=== PATIENT | male | born 1950 | race Caucasian/White ===

== ENCOUNTER 2020-06-08 12:16 | Inpatient (IN) | payer MEDICARE, MEDICAID ==
[~2020-06-08] VITALS: Ht 182.9 cm; Wt 90.9 kg
[~2020-06-08 12:16] MED LIST: ASPI81TA52 PO; ATOR80TA PO; BENA10TA75 PO; FURO20TA4 PO; METO25TA6 PO; NICO-731 TOP; NITR0.4T51 SL
--- NOTE | 2020-06-08 13:18 | NUR ---
Tanya STRONG updated. Patient/family removed madsen bag prior to ER visit. The madsen is open to air and is sitting inside a urinal. A few drops of bloody discharge noted in urinal, but unable to obtain sample due to lack of volume. Concerned that madsen is clotted.
[2020-06-08 13:37] LABS: BASOPHILS # (AUTO) 0.1 X10'3 (0-0.2); BASOPHILS % (AUTO) 0.8 % (0-1); EOSINOPHILS # (AUTO) 0.1 X10'3 (0-0.9); EOSINOPHILS % (AUTO) 0.7 % (0-6); HEMATOCRIT 40.3 % (42.0-52.0); HEMOGLOBIN 13.8 g/dl (14.0-17.9); LYMPHOCYTES # (AUTO) 1.8 X10'3 (1.1-4.8); LYMPHOCYTES % (AUTO) 15.6 % (21-51); MEAN CORPUSCULAR HGB CONC 34.3 g/dL (33.0-36.5); MEAN CORPUSCULAR VOLUME 96.3 FL (78-98); MEAN PLATELET VOLUME 9.1 FL (7.4-10.4); MONOCYTES # (AUTO) 0.9 X10'3 (0-0.9); MONOCYTES % (AUTO) 7.7 % (2-12); NEUTROPHILS # (AUTO) 8.5 X10'3 (1.8-7.7); NEUTROPHILS % (AUTO) 75.2 % (42-75); PLATELET COUNT 165 X10'3 (140-440); RED BLOOD COUNT 4.19 X10'6 (4.70-6.10); RED CELL DISTRIBUTION WIDTH 13.7 % (11.5-14.5); WHITE BLOOD COUNT 11.3 X10'3 (4.5-11.0)
[2020-06-08 13:47] LABS: ALANINE AMINOTRANSFERASE 26 U/L (12-78); ALBUMIN 3.9 G/DL (3.4-5.0); ALBUMIN/GLOBULIN RATIO 1.1 (1.1-1.5); ALKALINE PHOSPHATASE 63 IU/L (46-116); ANION GAP 11 (8-16); ASPARTATE AMINO TRANSFERASE 58 U/L (10-37); BILIRUBIN,TOTAL 0.9 MG/DL (0.1-1.0); BLOOD UREA NITROGEN 20 MG/DL (7-18); BUN/CREATININE RATIO 13.7 (5.4-32.0); CALCIUM 9.3 MG/DL (8.5-10.1); CHLORIDE 103 MMOL/L (99-107); CREATININE 1.46 MG/DL (0.60-1.10); GLUCOSE 106 MG/DL (70-104); POTASSIUM 4.3 MMOL/L (3.5-5.1); SODIUM 138 MMOL/L (135-145); TOTAL CARBON DIOXIDE 23.6 MMOL/L (24-32); TOTAL PROTEIN 7.3 G/DL (6.4-8.2); eGFR 48 ML/MIN
[2020-06-08 14:04] LABS: CLARITY,URINE BLOODY (Clear); COLOR,URINE RED (Yellow); UA COLLECTION TYPE FOLEY CATH
[2020-06-08 14:25] LABS: SQUAMOUS EPITHELIAL CELL,UR FEW /LPF (FEW); WBC CLUMPS,URINE FEW /HPF (NEGATIVE)
[2020-06-08 14:26] LABS: BACTERIA,URINE 1+ /HPF (Neg); HYALINE CASTS 0-3 /LPF (NEGATIVE); RBC,URINE TNTC /HPF (0-2)
[2020-06-08] MEDS ORDERED: FLO0.4C PO ×2 (14:34→18:05)
[2020-06-08] MEDS ORDERED: NAPR-56 PO (14:34)
[2020-06-08] MEDS ORDERED: HYDR-3965 PO (14:36)
--- NOTE | 2020-06-08 14:45 | NUR ---
Turner catheter flushed as ordered. Small clots removed with flushing. Bright red colored urine still returned after flushes.
[2020-06-08] MEDS ORDERED: normal saline 1000ML IV soln IVB ONE ×3 (14:50→17:45)
[2020-06-08 16:54] LABS: BASOPHILS # (AUTO) 0.1 X10'3 (0-0.2); EOSINOPHILS # (AUTO) 0.2 X10'3 (0-0.9); EOSINOPHILS % (AUTO) 1.6 % (0-6); HEMATOCRIT 38.1 % (42.0-52.0); HEMOGLOBIN 12.9 g/dl (14.0-17.9); LYMPHOCYTES # (AUTO) 2.5 X10'3 (1.1-4.8); LYMPHOCYTES % (AUTO) 27.5 % (21-51); MEAN CORPUSCULAR HEMOGLOBIN 32.8 PG (27.0-31.0); MEAN CORPUSCULAR VOLUME 96.6 FL (78-98); MEAN PLATELET VOLUME 9.1 FL (7.4-10.4); MONOCYTES # (AUTO) 0.8 X10'3 (0-0.9); MONOCYTES % (AUTO) 8.2 % (2-12); NEUTROPHILS # (AUTO) 5.7 X10'3 (1.8-7.7); NEUTROPHILS % (AUTO) 61.7 % (42-75); PLATELET COUNT 161 X10'3 (140-440); RED BLOOD COUNT 3.94 X10'6 (4.70-6.10); RED CELL DISTRIBUTION WIDTH 13.7 % (11.5-14.5); WHITE BLOOD COUNT 9.2 X10'3 (4.5-11.0)
[2020-06-08] MEDS ORDERED: morphine 4 MG/ML inj SYRINge IV ONE (17:45)
[2020-06-08] MEDS ORDERED: ondansetron/PF 4mg/2ml inj IV ONE (17:45)
[2020-06-08] MEDS ORDERED: FURO-150 PO (18:05)
[2020-06-08] MEDS ORDERED: BENA10TA75 PO (18:05)
[2020-06-08] MEDS ORDERED: METO25TA6 PO (18:05)
--- NOTE | 2020-06-08 18:14 | NUR ---
DR. HUITRON AT BEDSIDE. PATIENT HAVING PAIN AND FEELS LIKE HE HAS TO PEE. LARGE CLOTS NOTED IN CATHETER. ORDERS TO CHANGE ARREDONDO FOR CONTINUOUS BLADDER IRRIGATION.
[2020-06-08] MEDS ORDERED: LIDOcaine 2% 10ml TOPICAL JELLY (Urojet) MM ONE (18:25)
[2020-06-08] MEDS ORDERED: [UNRECOGNIZED DRUG - CODE] PO (18:44)
[2020-06-08] MEDS ORDERED: ALBU8.5H8 IH (18:44)
[2020-06-08] MEDS ORDERED: NITR0.4T51 SL (18:44)
[2020-06-08] MEDS ORDERED: LORazepam 2 mg/ml vial IV ONE (18:45)
[2020-06-08] MEDS ORDERED: HYDROcodone/acetaminophen 10/325mg tab PO PRN (18:45)
[2020-06-08] MEDS ORDERED: potassium Cl 20 mEq SR tablet PO PRN ×2 (18:45)
[2020-06-08] MEDS ORDERED: magnesium Cl slow-release 64mg tablet PO PRN (18:45)
[2020-06-08] MEDS ORDERED: morphine 2 MG/ML inj. syringe IV PRN ×2 (18:45)
[2020-06-08] MEDS ORDERED: HYDROcodone/acetaminophen 5mg/325mg tablet PO PRN (18:45)
[2020-06-08] MEDS ORDERED: docusate sod 100mg capsule PO PRN (18:45)
[2020-06-08] MEDS ORDERED: magnesium 2GM in 50ml NS 50 ML IV PRN (18:45)
[2020-06-08] MEDS ORDERED: magnesium 4gm in 100ml NS 100 ML IV PRN (18:45)
[2020-06-08] MEDS ORDERED: acetaminophen 325mg tablet PO PRN ×2 (18:45)
[2020-06-08] MEDS ORDERED: potassium Cl 40MEQ/1/2NS 520ml 520 ML IV PRN ×2 (18:45)
[2020-06-08] MEDS ORDERED: ondansetron/PF 4mg/2ml inj IV PRN (18:45)
[2020-06-08] MEDS ORDERED: albuterol 2.5 MG/3 ML nebule NEB PRN (18:55)
[2020-06-08] MEDS: normal saline 1000ml 1,000 ML IV SCH (19:32)
--- NOTE | 2020-06-08 19:40 | NUR ---
[address] Turner placed with the help of a urojet and Ativan 1 mg IV. Continuous irrigation flowing freely w/ pink tone urine. Pt tolerated procedure well and is resting comfortably. Pt states he has dentures upper and lower in his jacket pocket and has in his patient belonging bag clothing, shoes, phone and front window cashier.
--- NOTE | 2020-06-08 19:55 | NUR ---
Received report from Michelle BELTRAN. Patient came up to the floor via gurney and was able to transfer into bed with min assist. Bed placed in locked and low position. Call light placed within reach.
[2020-06-08 20:00] VITALS: BP 120/61
[2020-06-08] MEDS ORDERED: tamsulosin 0.4mg capsule PO SCH (21:00)
[2020-06-08] MEDS ORDERED: temazepam 15mg capsule PO PRN (21:00)
[2020-06-08] MEDS: tamsulosin 0.4mg capsule PO SCH (21:02)
[2020-06-08] MEDS: atorvastatin 20mg tablet PO SCH (21:02)
[2020-06-08] MEDS: metoprolol tartrate 12.5mg (1/2 tablet) PO SCH (21:03)
[2020-06-08] MEDS: K and/or MAG REPLACEMENT MC SCH (21:06)
[2020-06-08] MEDS: ciprofloxacin lact 400MG/200ML 200 ML IV SCH (21:39)
[2020-06-08 22:00] VITALS: BP 117/69
[2020-06-09] VITALS (18 sets, daily range): BP systolic 91–138; BP diastolic 50–70
[2020-06-09] MEDS: normal saline 1000ml 1,000 ML IV SCH ×3 (00:03→20:00)
[2020-06-09] MEDS ORDERED: morphine 4 MG/ML inj SYRINge IM ONE (00:45)
[2020-06-09] MEDS ORDERED: morphine 4 MG/ML inj SYRINge IV ONE (00:50)
[2020-06-09] MEDS ORDERED: morphine 2 MG/ML inj. syringe IV PRN ×2 (01:35→16:30)
--- NOTE | 2020-06-09 05:52 | NUR ---
Patient on continuos bladder irrigation. 11,250mls was instilled and 11,830mls was removed. Urine color is jennifer colored at times but patient will spasm up and try to urinate then urine will turn gordon red blood colored. Pain medication given to help with spasms.
--- NOTE | 2020-06-09 06:30 | NUR ---
Problems reprioritized. Patient report given, questions answered & plan of care reviewed with Kyle BELTRAN.
--- NOTE | 2020-06-09 06:40 | NUR ---
Patient in room PCU 3023. I have received report from Shandra BELTRAN and had the opportunity to ask questions and assume patient care.
[2020-06-09 06:47] LABS: BASOPHILS % (AUTO) 0.5 % (0-1); EOSINOPHILS # (AUTO) 0.2 X10'3 (0-0.9); EOSINOPHILS % (AUTO) 2.5 % (0-6); HEMATOCRIT 33.5 % (42.0-52.0); HEMOGLOBIN 11.8 g/dl (14.0-17.9); LYMPHOCYTES # (AUTO) 2.9 X10'3 (1.1-4.8); LYMPHOCYTES % (AUTO) 35.5 % (21-51); MEAN CORPUSCULAR HEMOGLOBIN 33.7 PG (27.0-31.0); MEAN CORPUSCULAR HGB CONC 35.4 g/dL (33.0-36.5); MEAN CORPUSCULAR VOLUME 95.2 FL (78-98); MEAN PLATELET VOLUME 9.2 FL (7.4-10.4); MONOCYTES # (AUTO) 0.7 X10'3 (0-0.9); MONOCYTES % (AUTO) 8.5 % (2-12); NEUTROPHILS # (AUTO) 4.3 X10'3 (1.8-7.7); PLATELET COUNT 149 X10'3 (140-440); RED BLOOD COUNT 3.52 X10'6 (4.70-6.10); RED CELL DISTRIBUTION WIDTH 13.6 % (11.5-14.5); WHITE BLOOD COUNT 8.2 X10'3 (4.5-11.0)
[2020-06-09 07:41] LABS: ALANINE AMINOTRANSFERASE 23 U/L (12-78); ALBUMIN 3.2 G/DL (3.4-5.0); ALBUMIN/GLOBULIN RATIO 1.1 (1.1-1.5); ALKALINE PHOSPHATASE 55 IU/L (46-116); ANION GAP 11 (8-16); ASPARTATE AMINO TRANSFERASE 53 U/L (10-37); BILIRUBIN,TOTAL 0.7 MG/DL (0.1-1.0); BLOOD UREA NITROGEN 19 MG/DL (7-18); BUN/CREATININE RATIO 15.2 (5.4-32.0); CALCIUM 8.3 MG/DL (8.5-10.1); CHLORIDE 106 MMOL/L (99-107); CREATININE 1.25 MG/DL (0.60-1.10); GLUCOSE 119 MG/DL (70-104); POTASSIUM 4.3 MMOL/L (3.5-5.1); SODIUM 140 MMOL/L (135-145); TOTAL CARBON DIOXIDE 22.7 MMOL/L (24-32); TOTAL PROTEIN 6.2 G/DL (6.4-8.2); eGFR 57 ML/MIN
--- NOTE | 2020-06-09 07:48 | NUR ---
PAGER ID: [phone] MESSAGE: [id number] ELIZABETH CAN WE HAVE AN ORDER FOR SOMETHING FOR BLADDER SPASMS. DIPAK [facility] 2018
[2020-06-09] MEDS: K and/or MAG REPLACEMENT MC SCH ×2 (08:00→20:00)
[2020-06-09] MEDS: lisinopril 10 MG tablet PO SCH (08:00)
[2020-06-09] MEDS: metoprolol tartrate 12.5mg (1/2 tablet) PO SCH ×2 (08:00→20:42)
[2020-06-09] MEDS ORDERED: opium/belladonna alkaloids No. 15A 30mg rectal suppository RC PRN (08:05)
[2020-06-09] MEDS: ciprofloxacin lact 400MG/200ML 200 ML IV SCH ×2 (08:14→20:42)
[2020-06-09] MEDS ORDERED: pneumococcal 23-VAL P-sac vacc 25 mcg/0.5ml vial IMVAC ONE (10:00)
--- NOTE | 2020-06-09 10:00 | NUR ---
Dr. Preciado at [facility] to see patient, possible surgery this evening or in the morning, needs cardiology clearance.
--- NOTE | 2020-06-09 13:15 | NUR ---
At bedside with patient, with frequent changes of CBI. Urine dark red with multiple clots. Patient comfortable at the moment, but complains of pain frequently from clots in urine that he is unable to pass, without manual irrigation. Possible surgery this afternoon. Bed locked in lowest position, call light within reach, patient instructed to call for assistance, pt verbalized understanding.
--- NOTE | 2020-06-09 13:26 | NUR ---
Al has CBI, [id number]
--- NOTE | 2020-06-09 14:30 | NUR ---
Patient picked up for surgery by OR
[2020-06-09] MEDS ORDERED: neomy sulf/polymyxin B sulf. GU irrigation 1ml amp IR ONE (14:41)
[2020-06-09] MEDS ORDERED: LIDOcaine 2% 10ml TOPICAL JELLY (Urojet) ONE (14:41)
[2020-06-09] MEDS ORDERED: midazolam 2 mg/2 ml injection ONE (15:00)
[2020-06-09] MEDS ORDERED: fentaNYL/PF 50MCG/1 ML 2ML syringe ONE (15:00)
[2020-06-09] MEDS ORDERED: propofol inj 20 ML IV ONE (15:00)
[2020-06-09] MEDS ORDERED: NORepinephrine 8 MG in NS 250 ML BAG (32 mcg/ml) IV ONE (15:06)
[2020-06-09] MEDS ORDERED: sevoflurane 250ml liquid IH ONE (15:06)
[2020-06-09] MEDS ORDERED: rocuronium 10mg/ml inj IV ONE (16:00)
[2020-06-09] MEDS ORDERED: glycopyrrolate 0.2mg/ml inj ONE (16:01)
[2020-06-09] MEDS ORDERED: neostigmine methylsulfate 1 MG/ML 10ml vial ONE (16:01)
--- NOTE | 2020-06-09 16:25 | NUR ---
ADMITTED TO PACU FROM OR ACCOMPANIED BY ANESTHESIA. INTIAL PHYSICAL ASSESSMENT DONE AND RECORDED. REPORT RECEIVED FROM ANESTHESIA.
[2020-06-09] MEDS ORDERED: meperidine/PF 25mg/ml syringe IV PRN ×3 (16:30)
[2020-06-09] MEDS ORDERED: morphine 4 MG/ML inj SYRINge IV PRN (16:30)
[2020-06-09] MEDS ORDERED: ringers solution, lacted 1,000 ML IV SCH (16:30)
[2020-06-09] MEDS ORDERED: ondansetron/PF 4mg/2ml inj IV PRN (16:30)
[2020-06-09] MEDS ORDERED: proCHLORperazine 10 MG/2 ml inj IV PRN (16:30)
--- NOTE | 2020-06-09 17:25 | NUR ---
PACU DISCHARGE CRITERIA MET, REPORT GIVEN TO FLOOR. DENIES PAIN OR DISCOMFORT, TRANSFERRED TO ROOM IN STABLE GOOD CONDITION. BLADDER IRRIGATION FLUID CLEAR, AMOUNT DOCUMENTED ON FLOW SHEET
--- NOTE | 2020-06-09 17:28 | NUR ---
Recieved report from Pacu nurse Flaca BELTRAN. Patient tolerated procedure well, NC 2.5L sats 95-98%, VSS, INT in place, still on CBI, urine is pink.
--- NOTE | 2020-06-09 17:57 | NUR ---
Patient arrived back on unit from OR. INT in place, CBI, VSS, no complaints of pain at this time.
--- NOTE | 2020-06-09 18:19 | NUR ---
Problems reprioritized. Patient report given, questions answered & plan of care reviewed with Itz RN.
[2020-06-09] MEDS: tamsulosin 0.4mg capsule PO SCH (20:42)
[2020-06-09] MEDS: atorvastatin 20mg tablet PO SCH (20:43)
[2020-06-09] MEDS: lactobacillus rhamnosus 10,000 MMU CELLS/CAPSULE PO SCH (20:44)
[2020-06-10 02:00] VITALS: BP 96/54
[2020-06-10 06:00] VITALS: BP 122/69
--- NOTE | 2020-06-10 06:15 | NUR ---
Problems reprioritized. Patient report given, questions answered & plan of care reviewed with JERMAINE BELTRAN.
--- NOTE | 2020-06-10 07:31 | NUR ---
Patient in room PCU 3023. I have received report from Itz RN and had the opportunity to ask questions and assume patient care.
[2020-06-10] MEDS: ciprofloxacin lact 400MG/200ML 200 ML IV SCH (08:19)
[2020-06-10] MEDS: lactobacillus rhamnosus 10,000 MMU CELLS/CAPSULE PO SCH (08:20)
[2020-06-10] MEDS: lisinopril 10 MG tablet PO SCH (08:20)
[2020-06-10] MEDS: metoprolol tartrate 12.5mg (1/2 tablet) PO SCH (08:21)
[2020-06-10 11:00] VITALS: BP 94/39
[2020-06-10] MEDS ORDERED: CIPR-202 PO (12:14)
--- NOTE | 2020-06-10 14:04 | NUR ---
Patient discharged home with spouse. INT removed. Discharge instructions provided to patient and , including madsen care, bag change, washing hands prior to change of bag, empty contents, and how to measure. Both verbalized understanding.
--- NOTE | 2020-06-11 13:06 | NUR ---
CASE MANAGEMENT DISCHARGE FOLLOW UP: T/c to pt's provided number, no answer, voicemail full. T/c to pt's , straight to voicemail, left message requesting call back. Addendum: 06/11/20 at 1354 by Leatha Jay RN [id number] Received return call from pt's , spoke with both patient and his . Reports that he is "doing fine," has a little bit of pain but that it is not bad; denies CP, SOB/dyspnea, dizziness/weakness, N/V, sweating, difficulty voiding. Pt's states that his urine is dark in color, like old blood, she states gloria is a good description for the color, states urine is clear. Advised that pt should increase his fluid intake, she verbalizes understanding. Verbalizes understanding of s/sx requiring further evaluation/emergent assistance. Verbalizes understanding of new and current medications. Verbalizes compliance with MD discharge instructions. Verbalizes understanding of the importance in making/keeping follow-up appointments, waiting to hear back from Dr Preciado's office. States no further questions/concerns at this time.
== END 2020-06-10 13:56 | disposition home or self-care (01) | DRG 670 ==
LOC: ER 12:18 → ED HOLD 18:42 → PCU 3S 20:05
PROVIDERS: ADMIT Internal Medicine; ATTEND Internal Medicine
PROC: 0TCB8ZZ Extirpation of Matter from Bladder, Via Natural or Artificial Opening Endoscopic (ICD-10-PCS; 2020-06-09)
PROC: 0TBB8ZZ Excision of Bladder, Via Natural or Artificial Opening Endoscopic (ICD-10-PCS; principal; 2020-06-09 15:06)
DX: D49.4 Neoplasm of unspecified behavior of bladder (principal); E78.00 Pure hypercholesterolemia, unspecified; E78.5 Hyperlipidemia, unspecified; F17.210 Nicotine dependence, cigarettes, uncomplicated; I10 Essential (primary) hypertension; I25.10 Atherosclerotic heart disease of native coronary artery without angina pectoris; I25.82 Chronic total occlusion of coronary artery; I35.0 Nonrheumatic aortic (valve) stenosis; G89.29 Other chronic pain; R33.9 Retention of urine, unspecified; I86.2 Pelvic varices; N20.0 Calculus of kidney; N32.89 Other specified disorders of bladder; Z66 Do not resuscitate; Z82.5 Family history of asthma and other chronic lower respiratory diseases; Z87.442 Personal history of urinary calculi; Z91.19 Patient's noncompliance with other medical treatment and regimen; Z95.1 Presence of aortocoronary bypass graft; Z86.74 Personal history of sudden cardiac arrest; Z71.6 Tobacco abuse counseling; Z88.8 Allergy status to other drugs, medicaments and biological substances
CPT/HCPCS: 36415; 74176; 80053; 81001; 83735; 85025; 87040; 87081; 87088; 93306; 93308; 97116; 97161; 97530; 99285; A4346; A4355; A4618; A6258; G0378; J0744; J2060; J2250; J2270; J2405; J2704; J2710; J3010; J3490; J7030; J7040; J7120

== ENCOUNTER 2021-07-24 11:16 | Emergency (ER) | payer OTHER, MEDICARE, MEDICAID ==
[~2021-07-24] VITALS: Ht 182.9 cm; Wt 90.0 kg
[~2021-07-24 11:16] MED LIST changes: +ALBU8.5H17 IH; +FLO0.4C PO; +FURO-150 PO; -FURO20TA4 PO; +LOP25T PO; -METO25TA6 PO; -NICO-731 TOP; +[UNRECOGNIZED DRUG - CODE] PO
--- NOTE | 2021-07-24 14:14 | NUR ---
C-Collar removed by Dr Garcia
[2021-07-24 14:19] VITALS: BP 101/58
== END 2021-07-24 14:20 | disposition home or self-care (01) ==
LOC: ER 11:16
DX: R51.9 Headache, unspecified (principal); I25.10 Atherosclerotic heart disease of native coronary artery without angina pectoris; E78.00 Pure hypercholesterolemia, unspecified; I10 Essential (primary) hypertension; G89.29 Other chronic pain; F17.200 Nicotine dependence, unspecified, uncomplicated; Z87.442 Personal history of urinary calculi; Z98.890 Other specified postprocedural states; Z79.82 Long term (current) use of aspirin; Z79.899 Other long term (current) drug therapy; V89.2XXA Person injured in unspecified motor-vehicle accident, traffic, initial encounter; Y93.89 Activity, other specified; Y92.89 Other specified places as the place of occurrence of the external cause; Y99.8 Other external cause status
CPT/HCPCS: 70450; 72125; 99284